=== PATIENT | female | born 1995 | race American Indian/Alaskan Native ===

== ENCOUNTER 2017-11-08 12:46 | Inpatient (IN) | payer MEDICAID ==
[2017-11-08 19:21] LABS: Basophils # (Auto) 0.1 K/mm3 (0.0-0.1); Basophils % (Auto) 0.6 % (0.0-1.8); Eosinophils % (Auto) 0.3 % (0.0-4.3); Hematocrit 34.8 % (30.3-42.9); Hemoglobin 11.4 gm/dl (10.1-14.3); Lymphocytes # (Auto) 2.3 K/mm3 (1.2-5.4); Lymphocytes % (Auto) 22.4 % (13.4-35.0); Mean Corpuscular HGB Conc 33 % (30-34); Mean Corpuscular Hemoglobin 27 pg (28-32); Mean Corpuscular Volume 82 fl (79-97); Monocytes # (Auto) 1.1 K/mm3 (0.0-0.8); Monocytes % (Auto) 11.2 % (0.0-7.3); Platelet Count 278 K/mm3 (140-440); Red Blood Count 4.24 M/mm3 (3.65-5.03)
[2017-11-08 19:22] LABS: Red Cell Distribution Width 21.4 % (13.2-15.2)
[2017-11-08] MEDS ORDERED: ZOFRAN IV PRN (22:55)
[2017-11-08] MEDS ORDERED: ePHEDrine SULFATE IV PRN (22:55)
[2017-11-08] MEDS ORDERED: BRETHINE IVP PRN (22:55)
[2017-11-08] MEDS ORDERED: MINERAL OIL PO PRN (22:55)
[2017-11-08] MEDS ORDERED: BRETHINE SUB-Q PRN (22:55)
[2017-11-08] MEDS ORDERED: PITOCin/NS 20 UNIT/1000ML DRIP 20 UNITS/1,000 ML BAG IV SCH (23:00)
[2017-11-08] MEDS ORDERED: AMBIEN PO PRN (23:31)
[2017-11-08] MEDS: LACTATED RINGERS 1,000 ML IV SCH (23:50)
[2017-11-09] MEDS: PITOCin/NS 30 UNIT/500ML 30 UNITS/500 ML BAG IV SCH ×6 (00:30→16:23)
[2017-11-09] MEDS: STADOL IV PRN ×2 (01:32→10:59)
[2017-11-09] MEDS ORDERED: POLYCILLIN/NS 2 GM/100 ML 2 GM/100 ML BAG IV ONE (04:22)
[2017-11-09] MEDS: LACTATED RINGERS 1,000 ML IV SCH ×2 (05:30→22:20)
--- NOTE | 2017-11-09 09:56 | History and Physical Report ---
History of Present Illness Date of examination: 11/09/17 Date of admission: 11/08/17 21:56 Chief complaint: Induction History of present illness: Pt is a 22yo BF EDC 10/31/17; EGA 41 2/7 weeks presents for induction of labor. She received care at [facility] since 15 weeks and course has been unremarkable and records are available. GBS is Positive. Past History Past Medical History: no pertinent history Past Surgical History: no surgical history [employer]MENT [employer]CH[employer]IC History: herpes Social history: no significant social history, single - Obstetrical History Expected Date of Delivery: 10/31/17 Actual Gestation: 41 Week(s) 2 Day(s) : 1 Medications and Allergies Allergies Allergy/AdvReac Type Severity Reaction Status Date / Time No Known Allergies Allergy Verified 11/08/17 23:03 Home Medications Medication Instructions Recorded Confirmed Last Taken Type valACYclovir [Valtrex] 500 mg PO DAILY 11/08/17 11/08/17 Unknown History Active Meds: Active Medications Butorphanol Tartrate (Stadol) 2 mg IV Q2H PRN PRN Reason: Pain , Severe (7-10) Last Admin: 11/09/17 01:32 Dose: 2 mg Ephedrine Sulfate (Ephedrine Sulfate) 10 mg IV Q2M PRN PRN Reason: Hypotension Ampicillin Sodium (Ampicillin/Ns 1 Gm/50 Ml) 1 gm in 50 mls @ 100 mls/hr IV Q6H ISSA; Protocol Lactated Ringer's (Lactated Ringers) 1,000 mls @ 125 mls/hr IV DIRECT ISSA Last Admin: 11/09/17 05:30 Dose: 125 mls/hr Oxytocin/Sodium Chloride (Pitocin/Ns 20 Unit/1000ml Drip) 20 units in 1,000 mls @ 125 mls/hr IV DIRECT ISSA Oxytocin/Sodium Chloride (Pitocin/Ns 30 Unit/500ml) 30 units in 500 mls @ 1 mls /hr IV TITR ISSA; Protocol Last Titration: 11/09/17 01:32 Dose: 4 milliunits/min, 4 mls/hr Mineral Oil (Mineral Oil) 30 ml PO QHS PRN PRN Reason: Constipation Ondansetron HCl (Zofran) 4 mg IV Q8H PRN PRN Reason: Nausea And Vomiting Terbutaline Sulfate (Brethine) 0.25 mg SUB-Q ONCE PRN PRN Reason: Hyperstimulation/Hypertonicity Terbutaline Sulfate (Brethine) 0.25 mg IVP ONCE PRN PRN Reason: Hyperstimulation/Hypertonicity Zolpidem Tartrate (Ambien) 10 mg PO QHS PRN PRN Reason: Insomnia Last Admin: 11/08/17 23:48 Dose: 10 mg Review of Systems All systems: negative - Vital Signs Vital signs: Vital Signs Pulse BP 111 H 119/72 11/08/17 13:18 11/08/17 13:18 Temp Pulse Resp BP Pulse Ox 98.3 F 95 H 16 123/75 98 11/09/17 08:10 11/09/17 09:57 11/09/17 08:10 11/09/17 09:37 11/09/17 09:57 - Physical Exam Breasts: Positive: deferred Cardiovascular: Regular rate Lungs: Positive: Clear to auscultation Abdomen: Positive: normal appearance Genitourinary (Female): Positive: normal external genitalia Vagina: Positive: normal moisture Uterus: Positive: enlarged Extremities: Positive: normal - Obstetrical FHR: category 1 Uterine Contraction Monitor Mode: External Cervical Dilatation: 1 (per nurse) Cervical Effacement Percentage: 50 (per nurse) Uterine Contraction Pattern: Regular Uterine Tone Measurement Phase: Contraction Uterine Contraction Intensity: Mild Results Result Diagrams: 11/08/17 18:25 Abnormal lab results 11/08/17 Range/Units 18:25 MCH 27 L (28-32) pg RDW 21.4 H (13.2-15.2) % [place] % (Auto) 11.2 H (0.0-7.3) % [place] # 1.1 H (0.0-0.8) K/mm3 All other labs normal. Assessment and Plan - Patient Problems (1) 41 weeks gestation of Onset Date: 11/09/17 Current Visit: Yes Status: Acute Plan to address problem: A: IUP @ 41 2/7 weeks +GBS P: Admit to L&D for cervidil/pitocin induction of labor IV Ampicillin
[2017-11-09] MEDS: AMPICILLIN/NS 1 GM/50 ML 1 GM/50 ML BAG IV SCH (10:30)
[2017-11-09] MEDS ORDERED: AMBIEN PO PRN (17:36)
--- NOTE | 2017-11-09 17:36 | Progress Note ---
Assessment and Plan - Patient Problems (1) 41 weeks gestation of Onset Date: 11/09/17 Current Visit: Yes Status: Acute Plan to address problem: A: IUP @ 41 2/7 weeks +GBS P: Will continue with cervidil/pitocin induction of labor IV Ampicillin Subjective - Subjective Date of service: 11/09/17 Principal diagnosis: IUP @ 41 2/7 weeks Interval history: Pt is a 22yo BF EDC 10/31/17; EGA 41 2/7 weeks presents for induction of labor. She received pitocin without any cervical change. GBS is Positive. Will stop pitocin and place cervidil over night. Patient reports: movement normal, contractions, no new complaints, no loss of fluid, no vaginal bleeding Objective - Vital Signs Vital Signs: Vital Signs - 12hr 11/09/17 11/09/17 11/09/17 06:36 07:36 08:10 Temperature 98.3 F Pulse Rate 93 H 101 H 104 H Respiratory 16 Rate Blood Pressure 119/74 124/79 Blood Pressure 109/62 [Right] O2 Sat by Pulse 98 Oximetry 11/09/17 11/09/17 11/09/17 08:17 08:22 08:27 Temperature Pulse Rate 99 H 100 H 102 H Respiratory Rate Blood Pressure 109/62 Blood Pressure [Right] O2 Sat by Pulse 99 99 99 Oximetry 11/09/17 11/09/17 11/09/17 08:32 08:37 08:42 Temperature Pulse Rate 105 H 95 H 103 H Respiratory Rate Blood Pressure Blood Pressure [Right] O2 Sat by Pulse 99 100 100 Oximetry 11/09/17 11/09/17 11/09/17 08:47 08:52 08:57 Temperature Pulse Rate 92 H 99 H 95 H Respiratory Rate Blood Pressure Blood Pressure [Right] O2 Sat by Pulse 100 100 100 Oximetry 11/09/17 11/09/17 11/09/17 09:02 09:07 09:12 Temperature Pulse Rate 96 H 101 H 91 H Respiratory Rate Blood Pressure Blood Pressure [Right] O2 Sat by Pulse 100 99 99 Oximetry 11/09/17 11/09/17 11/09/17 09:14 09:17 09:22 Temperature Pulse Rate 97 H 98 H 102 H Respiratory Rate Blood Pressure 124/78 Blood Pressure [Right] O2 Sat by Pulse 98 99 Oximetry 08/07/2411/09/17 11/09/17 09:27 09:32 09:37 Temperature Pulse Rate 92 H 99 H 95 H Respiratory Rate Blood Pressure 123/75 Blood Pressure [Right] O2 Sat by Pulse 98 98 98 Oximetry 11/09/17 11/09/17 11/09/17 09:42 09:47 09:52 Temperature Pulse Rate 98 H 98 H 97 H Respiratory Rate Blood Pressure Blood Pressure [Right] O2 Sat by Pulse 97 98 98 Oximetry 11/09/17 11/09/17 11/09/17 09:57 10:02 10:07 Temperature Pulse Rate 95 H 98 H 103 H Respiratory Rate Blood Pressure Blood Pressure [Right] O2 Sat by Pulse 98 98 99 Oximetry 11/09/17 11/09/17 11/09/17 10:12 10:17 10:22 Temperature Pulse Rate 92 H 96 H 94 H Respiratory Rate Blood Pressure Blood Pressure [Right] O2 Sat by Pulse 99 99 98 Oximetry 11/09/17 11/09/17 11/09/17 10:27 10:35 10:38 Temperature Pulse Rate 95 H 94 H 92 H Respiratory Rate Blood Pressure 129/81 Blood Pressure [Right] O2 Sat by Pulse 98 99 Oximetry 11/09/17 11/09/17 11/09/17 10:40 10:43 10:45 Temperature Pulse Rate 98 H 96 H 104 H Respiratory Rate Blood Pressure 126/79 Blood Pressure [Right] O2 Sat by Pulse 98 99 Oximetry 11/09/17 11/09/17 11/09/17 10:50 10:55 10:59 Temperature Pulse Rate 106 H 99 H Respiratory 16 Rate Blood Pressure Blood Pressure [Right] O2 Sat by Pulse 99 99 Oximetry 11/09/17 11/09/17 11/09/17 11:00 11:05 11:10 Temperature Pulse Rate 104 H 95 H 99 H Respiratory Rate Blood Pressure Blood Pressure [Right] O2 Sat by Pulse 98 99 96 Oximetry 11/09/17 11/09/17 11/09/17 11:13 11:14 11:15 Temperature Pulse Rate 95 H 90 95 H Respiratory Rate Blood Pressure 127/74 Blood Pressure [Right] O2 Sat by Pulse 94 97 Oximetry 11/09/17 11/09/17 11/09/17 11:20 11:25 11:29 Temperature Pulse Rate 98 H 99 H Respiratory 14 Rate Blood Pressure Blood Pressure [Right] O2 Sat by Pulse 95 96 Oximetry 11/09/17 11/09/17 11/09/17 11:30 11:35 11:40 Temperature Pulse Rate 99 H 100 H 94 H Respiratory Rate Blood Pressure Blood Pressure [Right] O2 Sat by Pulse 96 97 96 Oximetry 11/09/17 11/09/17 11/09/17 11:45 11:47 11:50 Temperature Pulse Rate 89 90 98 H Respiratory Rate Blood Pressure 125/66 Blood Pressure [Right] O2 Sat by Pulse 96 94 96 Oximetry 11/09/17 11/09/17 11/09/17 11:55 12:00 12:05 Temperature Pulse Rate 97 H 97 H 93 H Respiratory Rate Blood Pressure Blood Pressure [Right] O2 Sat by Pulse 96 96 96 Oximetry 11/09/17 11/09/17 11/09/17 12:10 12:14 12:15 Temperature Pulse Rate 94 H 90 90 Respiratory Rate Blood Pressure 112/60 Blood Pressure [Right] O2 Sat by Pulse 96 97 Oximetry 11/09/17 11/09/17 11/09/17 12:20 12:25 12:30 Temperature Pulse Rate 93 H 87 89 Respiratory Rate Blood Pressure Blood Pressure [Right] O2 Sat by Pulse 96 98 96 Oximetry 11/09/17 11/09/17 11/09/17 12:35 12:40 12:43 Temperature Pulse Rate 95 H 94 H 90 Respiratory Rate Blood Pressure 122/61 Blood Pressure [Right] O2 Sat by Pulse 97 98 Oximetry 11/09/17 11/09/17 11/09/17 12:45 12:50 12:55 Temperature Pulse Rate 92 H 95 H 96 H Respiratory Rate Blood Pressure Blood Pressure [Right] O2 Sat by Pulse 96 97 97 Oximetry 11/09/17 11/09/17 11/09/17 13:00 13:05 13:10 Temperature Pulse Rate 89 98 H 97 H Respiratory Rate Blood Pressure Blood Pressure [Right] O2 Sat by Pulse 96 96 97 Oximetry 11/09/17 11/09/17 11/09/17 13:13 13:15 13:20 Temperature Pulse Rate 92 H 96 H 95 H Respiratory Rate Blood Pressure 120/68 Blood Pressure [Right] O2 Sat by Pulse 96 96 Oximetry 11/09/17 11/09/17 11/09/17 13:25 13:30 13:35 Temperature Pulse Rate 98 H 95 H 97 H Respiratory Rate Blood Pressure Blood Pressure [Right] O2 Sat by Pulse 97 97 97 Oximetry 11/09/17 11/09/17 11/09/17 13:40 13:45 13:50 Temperature Pulse Rate 97 H 98 H 99 H Respiratory Rate Blood Pressure 121/70 Blood Pressure [Right] O2 Sat by Pulse 96 96 97 Oximetry 11/09/17 11/09/17 11/09/17 13:55 14:00 14:05 Temperature Pulse Rate 104 H 112 H 94 H Respiratory Rate Blood Pressure Blood Pressure [Right] O2 Sat by Pulse 98 96 97 Oximetry 11/09/17 11/09/17 11/09/17 14:10 14:13 14:15 Temperature Pulse Rate 113 H 96 H 107 H Respiratory Rate Blood Pressure 122/66 Blood Pressure [Right] O2 Sat by Pulse 97 97 Oximetry 11/09/17 11/09/17 11/09/17 14:20 14:25 14:30 Temperature Pulse Rate 97 H 97 H 99 H Respiratory Rate Blood Pressure Blood Pressure [Right] O2 Sat by Pulse 97 97 97 Oximetry 11/09/17 11/09/17 11/09/17 14:35 14:40 14:44 Temperature Pulse Rate 104 H 107 H 104 H Respiratory Rate Blood Pressure 118/67 Blood Pressure [Right] O2 Sat by Pulse 98 98 Oximetry 11/09/17 11/09/17 11/09/17 14:45 14:50 14:55 Temperature Pulse Rate 112 H 106 H 105 H Respiratory Rate Blood Pressure Blood Pressure [Right] O2 Sat by Pulse 98 98 98 Oximetry 11/09/17 11/09/17 11/09/17 15:00 15:05 15:10 Temperature Pulse Rate 91 H 93 H 103 H Respiratory Rate Blood Pressure Blood Pressure [Right] O2 Sat by Pulse 97 97 98 Oximetry 11/09/17 11/09/17 11/09/17 15:13 15:15 15:32 Temperature Pulse Rate 90 112 H 98 H Respiratory Rate Blood Pressure 111/63 Blood Pressure [Right] O2 Sat by Pulse 98 99 Oximetry 11/09/17 11/09/17 11/09/17 15:37 15:42 15:44 Temperature Pulse Rate 94 H 91 H 92 H Respiratory Rate Blood Pressure 112/74 Blood Pressure [Right] O2 Sat by Pulse 97 98 Oximetry 11/09/17 11/09/17 11/09/17 15:47 15:52 15:57 Temperature Pulse Rate 94 H 91 H 92 H Respiratory Rate Blood Pressure Blood Pressure [Right] O2 Sat by Pulse 97 99 97 Oximetry 11/09/17 11/09/17 11/09/17 16:02 16:07 16:12 Temperature Pulse Rate 94 H 90 91 H Respiratory Rate Blood Pressure Blood Pressure [Right] O2 Sat by Pulse 97 97 98 Oximetry 11/09/17 11/09/17 11/09/17 16:13 16:17 16:22 Temperature Pulse Rate 85 90 96 H Respiratory Rate Blood Pressure 111/72 Blood Pressure [Right] O2 Sat by Pulse 97 97 Oximetry 11/09/17 11/09/17 11/09/17 16:27 16:32 16:37 Temperature Pulse Rate 94 H 91 H 99 H Respiratory Rate Blood Pressure Blood Pressure [Right] O2 Sat by Pulse 99 98 98 Oximetry 11/09/17 11/09/17 11/09/17 16:42 16:44 16:47 Temperature Pulse Rate 100 H 96 H 99 H Respiratory Rate Blood Pressure 116/71 Blood Pressure [Right] O2 Sat by Pulse 98 98 Oximetry 11/09/17 11/09/17 11/09/17 16:52 16:57 17:02 Temperature Pulse Rate 99 H 98 H 97 H Respiratory Rate Blood Pressure Blood Pressure [Right] O2 Sat by Pulse 97 97 96 Oximetry 11/09/17 11/09/17 11/09/17 17:07 17:12 17:13 Temperature Pulse Rate 95 H 94 H 96 H Respiratory Rate Blood Pressure 112/78 Blood Pressure [Right] O2 Sat by Pulse 98 97 Oximetry 11/09/17 17:17 Temperature Pulse Rate 102 H Respiratory Rate Blood Pressure Blood Pressure [Right] O2 Sat by Pulse 97 Oximetry - Exam FHR: category 1 Uterine Contraction Monitor Mode: External Cervical Dilatation: 1 (per nurse) Cervical Effacement Percentage: 50 (per nurse) Uterine Contraction Pattern: Regular Uterine Contraction Intensity: Mild - Labs Labs: Abnormal Labs 11/08/17 18:25 MCH 27 L RDW 21.4 H [place] % (Auto) 11.2 H [place] # 1.1 H Laboratory Results - last 24 hr 11/08/17 11/08/17 11/08/17 18:25 18:25 18:25 WBC 10.2 RBC 4.24 Hgb 11.4 Hct 34.8 MCV 82 MCH 27 L MCHC 33 RDW 21.4 H Plt Count 278 Lymph % (Auto) 22.4 [place] % (Auto) 11.2 H Eos % (Auto) 0.3 Baso % (Auto) 0.6 Lymph # 2.3 [place] # 1.1 H Eos # 0.0 Baso # 0.1 Seg Neutrophils % 65.5 Seg Neutrophils # 6.7 RPR Hep Bs Antigen Non-reactive HIV 1&2 Antibody Rapid Non react HIV P24 Antigen Non react Rubella IgG Antibody Immune Blood Type Antibody Screen 11/08/17 11/08/17 18:25 18:43 WBC RBC Hgb Hct MCV MCH MCHC RDW Plt Count Lymph % (Auto) [place] % (Auto) Eos % (Auto) Baso % (Auto) Lymph # [place] # Eos # Baso # Seg Neutrophils % Seg Neutrophils # RPR Nonreactive Hep Bs Antigen HIV 1&2 Antibody Rapid HIV P24 Antigen Rubella IgG Antibody Blood Type O POSITIVE Antibody Screen Negative
[2017-11-09] MEDS ORDERED: CERVIDIL VG ONE (20:00)
[2017-11-10] MEDS: SUBLIMAZE IV PRN ×2 (00:07→02:53)
[2017-11-10] MEDS: LACTATED RINGERS 1,000 ML IV SCH ×4 (02:02→20:27)
[2017-11-10] MEDS ORDERED: CERVIDIL VG ONE (03:49)
[2017-11-10] MEDS: AMPICILLIN/NS 1 GM/50 ML 1 GM/50 ML BAG IV SCH ×4 (04:55→15:40)
[2017-11-10] MEDS: STADOL IV PRN ×2 (04:59→07:42)
[2017-11-10] MEDS ORDERED: NARCAN 2 MG/2 ML IV PRN (08:54)
[2017-11-10] MEDS ORDERED: ePHEDrine SULFATE IV PRN (08:54)
--- NOTE | 2017-11-10 08:54 | Anesthesia Consultation ---
Anesthesia Consult and Med Hx Date of service: 11/10/17 - Airway Anesthetic Teeth Evaluation: Good ROM Head & Neck: Adequate Mental/Hyoid Distance: Adequate Mallampati Class: Class II Intubation Access Assessment: Probably Good - Pulmonary Exam CTA: Yes - Cardiac Exam Cardiac Exam: RRR - Pre-Operative Health Status ASA Pre-Surgery Classification: ASA2 Proposed Anesthetic Plan: Epidural - Pulmonary Hx Asthma: No COPD: No Hx Pneumonia: No - Cardiovascular System Hx Hypertension: No - Central Nervous System Hx Seizures: No Hx Psychiatric Problems: No - Endocrine Hx Renal Disease: No Hx End Stage Renal Disease: No Hx Hypothyroidism: No Hx Hyperthyroidism: No - Hematic Hx Anemia: No Hx Sickle Cell Disease: No
[2017-11-10] MEDS ORDERED: fentaNYL-BUPIV 2 MCG/ML-0.125% 200 MCG/100 ML BAG EPIDURAL SCH ×2 (09:00→22:00)
[2017-11-10] MEDS: PITOCin/NS 30 UNIT/500ML 30 UNITS/500 ML BAG IV SCH (09:47)
--- NOTE | 2017-11-10 09:50 | Progress Note ---
Assessment and Plan - Patient Problems (1) 41 weeks gestation of Onset Date: 11/09/17 Current Visit: Yes Status: Acute Plan to address problem: A: IUP @ 41 3/7 weeks +GBS P: Will continue with pitocin induction of labor IV Ampicillin Expectant vaginal delivery Subjective - Subjective Date of service: 11/10/17 Principal diagnosis: IUP @ 41 3/7 weeks Interval history: Pt is a 22yo BF EDC 10/31/17; EGA 41 3/7 weeks presented for induction of labor. She received pitocin without any cervical change, followed by cervidil overnight. She reported SROM @ 0400, and is currently ankita q 4-5 mins with epidural in place. GBS is Positive. Patient reports: loss of fluid (SROM), movement normal, contractions, no new complaints, no vaginal bleeding Objective - Vital Signs Vital Signs: Vital Signs - 12hr 11/09/17 11/10/17 11/10/17 23:00 07:10 08:46 Temperature 98.4 F 98.3 F Pulse Rate 115 H Blood Pressure O2 Sat by Pulse 99 Oximetry 11/10/17 11/10/17 11/10/17 08:47 08:49 08:51 Temperature Pulse Rate 108 H 102 H 102 H Blood Pressure 128/79 130/82 132/80 O2 Sat by Pulse Oximetry 11/10/17 11/10/17 11/10/17 08:52 08:54 08:57 Temperature Pulse Rate 102 H 100 H 107 H Blood Pressure 115/65 104/58 O2 Sat by Pulse 98 94 98 Oximetry 11/10/17 11/10/17 11/10/17 08:59 09:01 09:02 Temperature Pulse Rate 93 H 106 H 109 H Blood Pressure 111/60 102/58 O2 Sat by Pulse 97 Oximetry 11/10/17 11/10/17 11/10/17 09:03 09:07 09:12 Temperature Pulse Rate 104 H 98 H 98 H Blood Pressure 102/58 O2 Sat by Pulse 97 96 Oximetry 11/10/17 11/10/17 11/10/17 09:15 09:17 09:22 Temperature Pulse Rate 101 H 98 H 103 H Blood Pressure O2 Sat by Pulse 91 95 97 Oximetry 11/10/17 11/10/17 11/10/17 09:27 09:28 09:32 Temperature Pulse Rate 105 H 96 H 88 Blood Pressure 102/68 O2 Sat by Pulse 97 98 Oximetry 11/10/17 11/10/17 11/10/17 09:37 09:42 09:43 Temperature Pulse Rate 92 H 86 90 Blood Pressure 107/70 O2 Sat by Pulse 97 95 Oximetry 11/10/17 09:47 Temperature Pulse Rate 89 Blood Pressure O2 Sat by Pulse 97 Oximetry - Exam Abdomen: Present: normal appearance, soft FHR: category 1 Uterine Contraction Monitor Mode: External Cervical Dilatation: 4 Cervical Effacement Percentage: 100 station: -2 Uterine Contraction Pattern: Irregular Uterine Tone Measurement Phase: Contraction Uterine Contraction Intensity: Moderate - Labs Labs: Abnormal Labs 11/08/17 18:25 MCH 27 L RDW 21.4 H [place] % (Auto) 11.2 H [place] # 1.1 H Laboratory Results - last 24 hr 11/08/17 18:25 RPR Nonreactive
[2017-11-10] MEDS ORDERED: METHERGINE IM ONE ×3 (17:01→23:33)
[2017-11-10] MEDS ORDERED: CYTOTEC ONE ×2 (17:02)
[2017-11-10] MEDS ORDERED: XYLOCAINE MPF 2% ONE (19:58)
[2017-11-10] MEDS ORDERED: BICITRA PO ONE (21:02)
[2017-11-10] MEDS ORDERED: REGLAN IV ONE (21:02)
[2017-11-10] MEDS ORDERED: PEPCID IV ONE (21:02)
--- NOTE | 2017-11-10 21:10 | Progress Note ---
Assessment and Plan - Patient Problems (1) 41 weeks gestation of Onset Date: 11/09/17 Current Visit: Yes Status: Acute Plan to address problem: A: IUP @ 41 3/7 weeks +GBS P: Will proceed with a C Section due to Failure to Progress. Subjective - Subjective Date of service: 11/10/17 Principal diagnosis: IUP @ 41 3/7 weeks Interval history: Pt is a 22yo BF EDC 10/31/17; EGA 41 3/7 weeks presented for induction of labor. She received pitocin without any cervical change, followed by cervidil overnight. She reported SROM @ 0400, and is currently ankita q 4-5 mins with epid[address] in place. GBS is Positive. She received pitocin all day and still no significant cervical change - Discussed with pt and family members that we will proceed with a C Section for delivery. Patient reports: loss of fluid (SROM), movement normal, contractions, no new complaints, no vaginal bleeding Objective - Vital Signs Vital Signs: Vital Signs - 12hr 11/10/17 11/10/17 11/10/17 09:12 09:15 09:17 Temperature Pulse Rate 98 H 101 H 98 H Respiratory Rate Blood Pressure Blood Pressure [Right] O2 Sat by Pulse 96 91 95 Oximetry 11/10/17 11/10/17 11/10/17 09:22 09:27 09:28 Temperature Pulse Rate 103 H 105 H 96 H Respiratory Rate Blood Pressure 102/68 Blood Pressure [Right] O2 Sat by Pulse 97 97 Oximetry 11/10/17 11/10/17 11/10/17 09:32 09:37 09:42 Temperature Pulse Rate 88 92 H 86 Respiratory Rate Blood Pressure Blood Pressure [Right] O2 Sat by Pulse 98 97 95 Oximetry 11/10/17 11/10/17 11/10/17 09:43 09:47 09:51 Temperature 98.1 F Pulse Rate 90 89 Respiratory 18 Rate Blood Pressure 107/70 Blood Pressure [Right] O2 Sat by Pulse 97 Oximetry 11/10/17 11/10/17 11/10/17 09:52 09:57 09:58 Temperature Pulse Rate 97 H 91 H 90 Respiratory Rate Blood Pressure 111/67 Blood Pressure [Right] O2 Sat by Pulse 98 95 Oximetry 11/10/17 11/10/17 11/10/17 10:02 10:07 10:12 Temperature Pulse Rate 90 90 95 H Respiratory Rate Blood Pressure Blood Pressure [Right] O2 Sat by Pulse 97 96 95 Oximetry 11/10/17 11/10/17 11/10/17 10:13 10:17 10:22 Temperature Pulse Rate 84 84 89 Respiratory Rate Blood Pressure 104/56 Blood Pressure [Right] O2 Sat by Pulse 96 96 Oximetry 11/10/17 11/10/17 11/10/17 10:27 10:30 10:32 Temperature Pulse Rate 90 88 88 Respiratory Rate Blood Pressure 103/62 Blood Pressure [Right] O2 Sat by Pulse 97 96 Oximetry 11/10/17 11/10/17 11/10/17 10:37 10:42 10:44 Temperature Pulse Rate 84 88 90 Respiratory Rate Blood Pressure 108/61 Blood Pressure [Right] O2 Sat by Pulse 97 95 Oximetry 11/10/17 11/10/17 11/10/17 10:47 10:52 10:57 Temperature Pulse Rate 90 93 H 97 H Respiratory Rate Blood Pressure Blood Pressure [Right] O2 Sat by Pulse 96 95 98 Oximetry 11/10/17 11/10/17 11/10/17 10:59 11:02 11:04 Temperature 98.4 F Pulse Rate 93 H 89 Respiratory 18 Rate Blood Pressure 132/80 Blood Pressure [Right] O2 Sat by Pulse 96 Oximetry 11/10/17 11/10/17 11/10/17 11:07 11:12 11:15 Temperature Pulse Rate 94 H 90 88 Respiratory Rate Blood Pressure 124/82 Blood Pressure [Right] O2 Sat by Pulse 97 100 Oximetry 11/10/17 11/10/17 11/10/17 11:17 11:22 11:27 Temperature Pulse Rate 87 91 H 88 Respiratory Rate Blood Pressure Blood Pressure [Right] O2 Sat by Pulse 100 100 100 Oximetry 11/10/17 11/10/17 11/10/17 11:30 11:32 11:37 Temperature Pulse Rate 90 94 H 91 H Respiratory Rate Blood Pressure 128/86 Blood Pressure [Right] O2 Sat by Pulse 100 100 Oximetry 11/10/17 11/10/17 11/10/17 11:42 11:44 11:47 Temperature Pulse Rate 92 H 86 90 Respiratory Rate Blood Pressure 125/85 Blood Pressure [Right] O2 Sat by Pulse 100 100 Oximetry 11/10/17 11/10/17 11/10/17 11:52 11:57 11:59 Temperature Pulse Rate 88 97 H 93 H Respiratory Rate Blood Pressure 132/77 Blood Pressure [Right] O2 Sat by Pulse 99 100 Oximetry 11/10/17 11/10/17 11/10/17 12:02 12:11 12:14 Temperature Pulse Rate 94 H 97 H 92 H Respiratory Rate Blood Pressure 127/72 Blood Pressure [Right] O2 Sat by Pulse 99 99 Oximetry 11/10/17 11/10/17 11/10/17 12:16 12:21 12:26 Temperature Pulse Rate 88 96 H 95 H Respiratory Rate Blood Pressure Blood Pressure [Right] O2 Sat by Pulse 99 99 98 Oximetry 11/10/17 11/10/17 11/10/17 12:28 12:31 12:36 Temperature Pulse Rate 97 H 103 H 105 H Respiratory Rate Blood Pressure 112/62 Blood Pressure [Right] O2 Sat by Pulse 99 97 Oximetry 11/10/17 11/10/17 11/10/17 12:41 12:43 12:46 Temperature Pulse Rate 98 H 98 H 97 H Respiratory Rate Blood Pressure 119/72 Blood Pressure [Right] O2 Sat by Pulse 97 96 Oximetry 11/10/17 11/10/17 11/10/17 12:51 12:56 12:58 Temperature Pulse Rate 98 H 96 H 95 H Respiratory Rate Blood Pressure 117/75 Blood Pressure [Right] O2 Sat by Pulse 96 98 Oximetry 11/10/17 11/10/17 11/10/17 13:01 13:06 13:11 Temperature Pulse Rate 96 H 101 H 105 H Respiratory Rate Blood Pressure Blood Pressure [Right] O2 Sat by Pulse 97 97 97 Oximetry 11/10/17 11/10/17 11/10/17 13:14 13:16 13:21 Temperature Pulse Rate 94 H 99 H 100 H Respiratory Rate Blood Pressure 120/71 Blood Pressure [Right] O2 Sat by Pulse 97 96 Oximetry 11/10/17 11/10/17 11/10/17 13:26 13:29 13:31 Temperature Pulse Rate 94 H 96 H 97 H Respiratory Rate Blood Pressure 112/71 Blood Pressure [Right] O2 Sat by Pulse 99 99 Oximetry 11/10/17 11/10/17 11/10/17 13:36 13:41 13:43 Temperature Pulse Rate 94 H 94 H 96 H Respiratory Rate Blood Pressure 110/70 Blood Pressure [Right] O2 Sat by Pulse 99 100 Oximetry 11/10/17 11/10/17 11/10/17 13:47 13:52 13:55 Temperature 99.0 F Pulse Rate 94 H 90 Respiratory 20 Rate Blood Pressure Blood Pressure [Right] O2 Sat by Pulse 100 100 Oximetry 11/10/17 11/10/17 11/10/17 13:57 14:00 14:02 Temperature Pulse Rate 102 H 97 H 98 H Respiratory Rate Blood Pressure 114/78 Blood Pressure [Right] O2 Sat by Pulse 100 100 Oximetry 11/10/17 11/10/17 11/10/17 14:07 14:12 14:13 Temperature Pulse Rate 98 H 94 H 93 H Respiratory Rate Blood Pressure 124/78 Blood Pressure [Right] O2 Sat by Pulse 99 99 Oximetry 11/10/17 11/10/17 11/10/17 14:17 14:22 14:27 Temperature Pulse Rate 88 101 H 92 H Respiratory Rate Blood Pressure Blood Pressure [Right] O2 Sat by Pulse 100 98 99 Oximetry 11/10/17 11/10/17 11/10/17 14:29 14:32 14:37 Temperature Pulse Rate 89 95 H 95 H Respiratory Rate Blood Pressure 123/80 Blood Pressure [Right] O2 Sat by Pulse 99 100 Oximetry 11/10/17 11/10/17 11/10/17 14:42 14:43 14:47 Temperature Pulse Rate 89 85 99 H Respiratory Rate Blood Pressure 125/82 Blood Pressure [Right] O2 Sat by Pulse 100 100 Oximetry 11/10/17 11/10/17 11/10/17 14:52 14:57 14:59 Temperature Pulse Rate 110 H 89 92 H Respiratory Rate Blood Pressure 121/73 Blood Pressure [Right] O2 Sat by Pulse 97 100 Oximetry 11/10/17 11/10/17 11/10/17 15:02 15:07 15:12 Temperature Pulse Rate 91 H 95 H 97 H Respiratory Rate Blood Pressure Blood Pressure [Right] O2 Sat by Pulse 100 100 99 Oximetry 11/10/17 11/10/17 11/10/17 15:15 15:17 15:22 Temperature Pulse Rate 92 H 96 H 95 H Respiratory Rate Blood Pressure 123/86 Blood Pressure [Right] O2 Sat by Pulse 99 100 Oximetry 11/10/17 11/10/17 11/10/17 15:27 15:28 15:32 Temperature Pulse Rate 94 H 101 H 95 H Respiratory Rate Blood Pressure 137/88 Blood Pressure [Right] O2 Sat by Pulse 98 98 Oximetry 11/10/17 11/10/17 11/10/17 15:37 15:42 15:44 Temperature Pulse Rate 97 H 94 H 90 Respiratory Rate Blood Pressure 119/63 Blood Pressure [Right] O2 Sat by Pulse 99 98 Oximetry 11/10/17 11/10/17 11/10/17 15:47 15:52 15:57 Temperature Pulse Rate 96 H 104 H 93 H Respiratory Rate Blood Pressure Blood Pressure [Right] O2 Sat by Pulse 98 99 99 Oximetry 11/10/17 11/10/17 11/10/17 15:58 16:02 16:07 Temperature Pulse Rate 95 H 93 H 95 H Respiratory Rate Blood Pressure 120/81 Blood Pressure [Right] O2 Sat by Pulse 99 99 Oximetry 11/10/17 11/10/17 11/10/17 16:12 16:13 16:17 Temperature Pulse Rate 98 H 96 H 99 H Respiratory Rate Blood Pressure 119/76 Blood Pressure [Right] O2 Sat by Pulse 97 97 Oximetry 11/10/17 11/10/17 11/10/17 16:22 16:27 16:29 Temperature Pulse Rate 97 H 96 H 96 H Respiratory Rate Blood Pressure 123/79 Blood Pressure [Right] O2 Sat by Pulse 98 96 Oximetry 11/10/17 11/10/17 11/10/17 16:32 16:37 16:42 Temperature Pulse Rate 103 H 107 H 103 H Respiratory Rate Blood Pressure Blood Pressure [Right] O2 Sat by Pulse 97 97 99 Oximetry 11/10/17 11/10/17 11/10/17 16:44 16:47 16:52 Temperature Pulse Rate 122 H 116 H 103 H Respiratory Rate Blood Pressure 140/65 Blood Pressure [Right] O2 Sat by Pulse 97 95 Oximetry 11/10/17 11/10/17 11/10/17 16:57 16:58 17:02 Temperature Pulse Rate 106 H 107 H 110 H Respiratory Rate Blood Pressure 135/88 Blood Pressure [Right] O2 Sat by Pulse 97 97 Oximetry 11/10/17 11/10/17 11/10/17 17:07 17:12 17:15 Temperature Pulse Rate 102 H 99 H 107 H Respiratory Rate Blood Pressure 131/79 Blood Pressure [Right] O2 Sat by Pulse 96 99 Oximetry 11/10/17 11/10/17 11/10/17 17:28 17:37 17:39 Temperature Pulse Rate 101 H 92 H 93 H Respiratory Rate Blood Pressure 125/69 133/82 126/77 Blood Pressure [Right] O2 Sat by Pulse 96 98 Oximetry 11/10/17 11/10/17 11/10/17 17:41 17:42 17:43 Temperature Pulse Rate 102 H 96 H 96 H Respiratory Rate Blood Pressure 122/75 119/74 Blood Pressure [Right] O2 Sat by Pulse 97 Oximetry 11/10/17 11/10/17 11/10/17 17:45 17:47 17:49 Temperature Pulse Rate 95 H 96 H 94 H Respiratory Rate Blood Pressure 123/76 121/76 121/76 Blood Pressure [Right] O2 Sat by Pulse 97 Oximetry 11/10/17 11/10/17 11/10/17 17:51 17:52 17:53 Temperature Pulse Rate 96 H 99 H 96 H Respiratory Rate Blood Pressure 124/79 117/77 Blood Pressure [Right] O2 Sat by Pulse 96 Oximetry 11/10/17 11/10/17 11/10/17 17:55 17:57 17:59 Temperature Pulse Rate 96 H 94 H 98 H Respiratory Rate Blood Pressure 121/77 119/74 118/73 Blood Pressure [Right] O2 Sat by Pulse 97 Oximetry 11/10/17 11/10/17 11/10/17 18:01 18:02 18:03 Temperature Pulse Rate 100 H 97 H 96 H Respiratory Rate Blood Pressure 115/75 112/75 Blood Pressure [Right] O2 Sat by Pulse 96 Oximetry 11/10/17 11/10/17 11/10/17 18:05 18:07 18:09 Temperature Pulse Rate 93 H 93 H 99 H Respiratory Rate Blood Pressure 116/75 114/73 112/70 Blood Pressure [Right] O2 Sat by Pulse 97 Oximetry 11/10/17 11/10/17 11/10/17 18:11 18:12 18:13 Temperature Pulse Rate 99 H 98 H 94 H Respiratory Rate Blood Pressure 111/69 117/74 Blood Pressure [Right] O2 Sat by Pulse 97 Oximetry 11/10/17 11/10/17 11/10/17 18:15 18:17 18:19 Temperature Pulse Rate 93 H 99 H 99 H Respiratory Rate Blood Pressure 121/75 120/74 115/74 Blood Pressure [Right] O2 Sat by Pulse 96 Oximetry 11/10/17 11/10/17 11/10/17 18:21 18:22 18:23 Temperature Pulse Rate 95 H 96 H 100 H Respiratory Rate Blood Pressure 118/75 118/77 Blood Pressure [Right] O2 Sat by Pulse 97 Oximetry 11/10/17 11/10/17 11/10/17 18:25 18:27 18:29 Temperature Pulse Rate 97 H 97 H 93 H Respiratory Rate Blood Pressure 122/76 118/76 121/75 Blood Pressure [Right] O2 Sat by Pulse 97 Oximetry 11/10/17 11/10/17 11/10/17 18:31 18:32 18:33 Temperature Pulse Rate 95 H 96 H 96 H Respiratory Rate Blood Pressure 118/73 121/74 Blood Pressure [Right] O2 Sat by Pulse 96 Oximetry 11/10/17 11/10/17 11/10/17 18:35 18:37 18:39 Temperature Pulse Rate 96 H 99 H 100 H Respiratory Rate Blood Pressure 120/73 114/71 120/72 Blood Pressure [Right] O2 Sat by Pulse 97 Oximetry 11/10/17 11/10/17 11/10/17 18:41 18:42 18:43 Temperature Pulse Rate 96 H 99 H 97 H Respiratory Rate Blood Pressure 116/71 112/71 Blood Pressure [Right] O2 Sat by Pulse 97 Oximetry 11/10/17 11/10/17 11/10/17 18:45 18:47 18:49 Temperature Pulse Rate 95 H 96 H 102 H Respiratory Rate Blood Pressure 121/76 119/75 122/78 Blood Pressure [Right] O2 Sat by Pulse 97 Oximetry 11/10/17 11/10/17 11/10/17 18:52 18:53 18:55 Temperature Pulse Rate 96 H 97 H 107 H Respiratory Rate Blood Pressure 111/55 109/58 112/57 Blood Pressure [Right] O2 Sat by Pulse 98 Oximetry 11/10/17 11/10/17 11/10/17 18:57 18:59 19:01 Temperature Pulse Rate 96 H 100 H 111 H Respiratory Rate Blood Pressure 105/57 110/57 111/59 Blood Pressure [Right] O2 Sat by Pulse 99 Oximetry 11/10/17 11/10/17 11/10/17 19:02 19:03 19:05 Temperature Pulse Rate 100 H 96 H 100 H Respiratory Rate Blood Pressure 112/63 114/68 Blood Pressure [Right] O2 Sat by Pulse 99 Oximetry 11/10/17 11/10/17 11/10/17 19:07 19:09 19:11 Temperature Pulse Rate 97 H 102 H 99 H Respiratory Rate Blood Pressure 110/66 107/65 108/68 Blood Pressure [Right] O2 Sat by Pulse 99 Oximetry 11/10/17 11/10/17 11/10/17 19:12 19:13 19:15 Temperature Pulse Rate 99 H 103 H 109 H Respiratory Rate Blood Pressure 105/68 113/69 Blood Pressure [Right] O2 Sat by Pulse 96 Oximetry 11/10/17 11/10/17 11/10/17 19:17 19:19 19:21 Temperature Pulse Rate 104 H 100 H 100 H Respiratory Rate Blood Pressure 117/69 111/67 104/65 Blood Pressure [Right] O2 Sat by Pulse 98 Oximetry 11/10/17 11/10/17 11/10/17 19:22 19:23 19:25 Temperature Pulse Rate 102 H 106 H 110 H Respiratory Rate Blood Pressure 111/65 118/65 Blood Pressure [Right] O2 Sat by Pulse 98 Oximetry 11/10/17 11/10/17 11/10/17 19:27 19:28 19:30 Temperature Pulse Rate 105 H 105 H 107 H Respiratory Rate Blood Pressure 118/61 116/60 Blood Pressure [Right] O2 Sat by Pulse 97 Oximetry 11/10/17 11/10/17 11/10/17 19:32 19:37 19:42 Temperature Pulse Rate 105 H 107 H 111 H Respiratory Rate Blood Pressure Blood Pressure [Right] O2 Sat by Pulse 98 98 99 Oximetry 11/10/17 11/10/17 11/10/17 19:47 19:59 20:01 Temperature Pulse Rate 104 H 101 H 109 H Respiratory Rate Blood Pressure 118/74 Blood Pressure [Right] O2 Sat by Pulse 98 97 Oximetry 11/10/17 11/10/17 11/10/17 20:03 20:04 20:05 Temperature Pulse Rate 104 H 98 H 96 H Respiratory Rate Blood Pressure 124/76 115/70 Blood Pressure [Right] O2 Sat by Pulse 98 Oximetry 11/10/17 11/10/17 11/10/17 20:08 20:09 20:14 Temperature Pulse Rate 98 H 101 H 100 H Respiratory Rate Blood Pressure 120/67 112/68 Blood Pressure [Right] O2 Sat by Pulse 97 97 Oximetry 11/10/17 11/10/17 11/10/17 20:19 20:20 20:24 Temperature 99.5 F Pulse Rate 105 H 103 H 104 H Respiratory 18 Rate Blood Pressure Blood Pressure 112/68 [Right] O2 Sat by Pulse 97 96 Oximetry 11/10/17 11/10/17 11/10/17 20:29 20:34 20:39 Temperature Pulse Rate 101 H 101 H 107 H Respiratory Rate Blood Pressure Blood Pressure [Right] O2 Sat by Pulse 97 98 96 Oximetry 11/10/17 11/10/17 11/10/17 20:43 20:44 20:49 Temperature Pulse Rate 80 101 H 100 H Respiratory Rate Blood Pressure Blood Pressure [Right] O2 Sat by Pulse 84 98 97 Oximetry 11/10/17 11/10/17 11/10/17 20:54 20:59 21:04 Temperature Pulse Rate 103 H 102 H 111 H Respiratory Rate Blood Pressure Blood Pressure [Right] O2 Sat by Pulse 96 97 96 Oximetry 11/10/17 21:09 Temperature Pulse Rate 107 H Respiratory Rate Blood Pressure Blood Pressure [Right] O2 Sat by Pulse 97 Oximetry - Exam FHR: category 1 Uterine Contraction Monitor Mode: External Cervical Dilatation: 4.5 Cervical Effacement Percentage: 100 station: -2 Uterine Contraction Pattern: Regular Uterine Tone Measurement Phase: Contraction Uterine Contraction Intensity: Strong/Firm - Labs Labs: Abnormal Labs 11/08/17 18:25 MCH 27 L RDW 21.4 H [place] % (Auto) 11.2 H [place] # 1.1 H
[2017-11-10] MEDS ORDERED: WATER FOR IRRIG STERILE IR ONE (21:25)
[2017-11-10] MEDS ORDERED: NACL 0.9% IR ONE (21:25)
--- NOTE | 2017-11-10 21:25 | Post Anesthesia Evaluation ---
- Post Anesthesia Evaluation Patient Participated: Yes Airway Patent: Yes Stable Respiratory Function: Yes Nausea/Vomiting: No Temp > 96.8F: Yes Pain Manageable: Yes Adequeate Hydration: Yes Anesthesia Complications: No
[2017-11-10] MEDS ORDERED: ZOFRAN IV PRN (21:26)
[2017-11-10] MEDS ORDERED: PHENERGAN PO PRN (21:26)
[2017-11-10] MEDS ORDERED: PHENERGAN PR PRN (21:26)
[2017-11-10] MEDS ORDERED: NARCAN 0.4 MG/1 ML IV PRN ×2 (21:26→22:33)
[2017-11-10] MEDS ORDERED: LACTATED RINGERS 1,000 ML IV SCH (22:00)
[2017-11-10] MEDS ORDERED: PITOCin/NS 20 UNIT/1000ML DRIP 20 UNITS/1,000 ML BAG IV SCH ×2 (22:00→23:00)
[2017-11-10] MEDS ORDERED: SODIUM CHLORIDE FLUSH SYRINGE 10 ML IV PRN ×2 (22:00→23:00)
[2017-11-10] MEDS ORDERED: ANCEF/STERILE WATER 2 GM/20 ML 2 GM/20 ML SYRINGE IV NR (22:00)
--- NOTE | 2017-11-10 22:28 | Operative Report ---
Operative Report Operative Report: Date of procedure: 11/10/2017 Pre-operative diagnosis: 1. Intrauterine at 41-3/7 weeks 2. Failed induction of labor 3. Failure to progress 4. Cephalopelvic disproportion Post-operative diagnosis: Same Procedure name(s): Primary low transverse section Surgeon: Erik Abel MD Fitness Teacher: None Anesthesia: Epidural anesthesia by Dr. Torres EBL: 800 mls Findings: A 4134 g male Apgars 7 at 1 minute 9 at 5 minutes. 1+ meconium fluid. Normal uterus. Normal tubes and ovaries bilaterally. Procedure: After the patient was prepped and draped in usual sterile fashion, and after satisfactory level of epidural anesthesia was obtained, the skin knife was used to make a transverse skin incision. The incision was excised down to layer of the fascia, which was nicked in the midline and extended laterally using the Bovie cautery. The rectus muscles were dissected off the rectus fascia both superiorly and inferiorly. The rectus bellies in the midline, and the peritoneum was entered under direct visualization. The peritoneal incision was extended superiorly and inferiorly. A bladder flap was created and the bladder blade was then placed. The uterus was scored in a curvilinear linear fashion, entered in the midline revealing 1+ meconium amniotic fluid. The 's head was delivered onto the surgical field, and the oropharynx and nasopharynx were bulb suctioned. The rest of the 's body was delivered, cord was doubly clamped and cut and the was handed to the waiting respiratory team. Cord blood was then obtained. The placenta was manually removed from the uterus, and the uterus removed from its normal anatomical position. After gentle uterine lavage, the incision was inspected and found to be without extensions. It was then closed in 2 layers using 0 Vicryl suture in a running interlocking fashion, the second layer imbricating the first. After good hemostasis was achieved, copious amounts or irrigation was performed, and the gutters were suctioned free of blood and blood clots. Tisseel sealant was sprayed across the uterine incision. The uterus was then returned to its normal anatomical position, and after excellent hemostasis assured, the peritoneum was re-approximated using 3-0 Vicryl suture in a running interlocking fashion, and then the rectus muscles were re-approximated using 3-0 Vicryl suture in a [id number] configuration. The fascia was then re-approximated using 0 Vicryl suture in running interlocking fashion. The subcutaneous layer was made hemostatic using Bovie cautery, the Tisseel sealant was sprayed across the fascial incision and the skin edges re- approximated using 4-0 Vicryl suture in a sub-cuticular fashion. Patient tolerated the procedure well was transported to recovery in stable condition.
[2017-11-10] MEDS ORDERED: LANSINOH TP PRN (22:33)
[2017-11-10] MEDS ORDERED: TYLENOL PO PRN (22:33)
[2017-11-10] MEDS ORDERED: MILK OF MAGNESIA PO PRN (22:33)
[2017-11-10] MEDS ORDERED: TUCKS PAD TP PRN (22:33)
[2017-11-10] MEDS ORDERED: SENOKOT PO PRN (22:33)
[2017-11-10] MEDS ORDERED: D5LR 1,000 ML IV SCH (23:00)
[2017-11-10] MEDS ORDERED: DILAUDID IM PRN (23:11)
[2017-11-10] MEDS: TORADOL IV PRN (23:20)
[2017-11-10] MEDS ORDERED: TYLENOL PR ONE (23:55)
[2017-11-11] MEDS: ANCEF/NS 1 GM/50 ML 1 GM/50 ML BAG IV SCH ×2 (05:32→12:31)
[2017-11-11] MEDS: TORADOL IV PRN (05:42)
[2017-11-11] MEDS: METHERGINE PO SCH ×3 (05:53→22:40)
[2017-11-11 10:57] LABS: Hematocrit 20.5 % (30.3-42.9); Hemoglobin 6.4 gm/dl (10.1-14.3)
[2017-11-11] MEDS: MOTRIN PO PRN (13:35)
[2017-11-11] MEDS: NORCO 5/325 PO PRN (13:35)
--- NOTE | 2017-11-11 14:25 | Progress Note ---
Assessment and Plan - Patient Problems (1) 41 weeks gestation of Onset Date: 11/09/17 Current Visit: Yes Status: Resolved (2) Status post Onset Date: 11/11/17 Current Visit: Yes Status: Resolved Plan to address problem: A: S/P C Section - POD #1 Doing well Asymptomatic anemia - stable P: Continue RPOC Repeat H/H in AM (3) Acute blood loss anemia Onset Date: 11/11/17 Current Visit: Yes Status: Resolved Subjective - Subjective Date of service: 11/11/17 Principal diagnosis: s/p C Section - POD #1 Interval history: Pt is feeling well without complaints. She is tolerating a reg diet without nausea or vomiting, ambulating and voiding without difficulty. Patient reports: appetite normal, voiding normally, pain well controlled, flatus , ambulating normally, no dizzy ambulation, no nauseated : doing well, bottle feeding Objective - Vital Signs Latest vital signs: Vital Signs Temp Pulse Resp BP BP Pulse Ox 11/11/17 13:35 20 11/11/17 05:42 18 11/11/17 04:00 98.7 F 69 18 101/77 11/11/17 01:10 100 F H 80 18 110/60 11/11/17 01:05 20 11/11/17 00:32 100.3 F H 11/11/17 00:30 128 H 15 115/73 99 11/11/17 00:25 117 H 18 113/74 99 11/11/17 00:20 123 H 20 107/72 100 11/11/17 00:15 121 H 20 113/78 99 11/11/17 00:10 119 H 19 116/71 99 11/11/17 00:05 129 H 21 110/60 99 11/11/17 00:00 136 H 20 105/57 99 11/10/17 23:55 125 H 19 105/57 100 11/10/17 23:50 131 H 21 103/64 99 11/10/17 23:45 142 H 21 107/63 98 11/10/17 23:40 135 H 18 115/87 97 11/10/17 23:35 140 H 19 106/66 97 11/10/17 23:32 100.6 F H 11/10/17 23:30 145 H 20 109/76 97 11/10/17 23:25 137 H 22 102/78 97 /05/18 23:20 164 H 11 L 125/79 97 /05/18 23:15 143 H 21 125/79 97 05/18 23:10 138 H 21 121/84 98 08/05/18 23:05 134 H 17 135/84 98 18 23:00 136 H 15 128/88 98 /05/18 22:55 127 H 21 124/81 98 05/18 22:50 118 H 19 131/87 98 05/18 22:45 126 H 17 122/92 98 05/18 22:40 118 H 18 135/91 97 05/18 22:35 98 05/18 22:32 99.6 F 11/10/17 21:24 111 H 98 11/10/18 21:19 111 H 97 11/10/18 21:14 112 H 97 /05/18 21:12 104 H 108/59 05/18 21:09 107 H 97 05/18 21:04 111 H 96 /05/18 20:59 102 H 97 05/18 20:54 103 H 96 /05/18 20:49 100 H 97 /05/18 20:44 101 H 98 05/18 20:43 80 84 11/10/17 20:39 107 H 96 05/18 20:34 101 H 98 05/18 20:29 101 H 97 /05/18 20:24 104 H 96 /05/18 20:20 99.5 F 103 H 18 112/68 11/10/18 20:19 105 H 97 0518 20:14 100 H 97 05/18 20:09 101 H 112/68 97 /05/18 20:08 98 H 120/67 05/18 20:05 96 H 115/70 05/18 20:04 98 H 98 05/18 20:03 104 H 124/76 05/18 20:01 109 H 118/74 0518 19:59 101 H 97 /05/18 19:47 104 H 98 /05/18 19:42 111 H 99 05/18 19:37 107 H 98 /0518 19:32 105 H 98 08/05/18 19:30 107 H 116/60 08/05/18 19:28 105 H 118/61 08/05/18 19:27 105 H 97 /05/18 19:25 110 H 118/65 08/05/18 19:23 106 H 111/65 08/05/18 19:22 102 H 98 /05/18 19:21 100 H 104/65 08/05/18 19:19 100 H 111/67 05/18 19:17 104 H 117/69 98 08/05/18 19:15 109 H 113/69 /05/18 19:13 103 H 105/68 05/18 19:12 99 H 96 /05/18 19:11 99 H 108/68 05/18 19:09 102 H 107/65 05/18 19:07 97 H 110/66 99 05/18 19:05 100 H 114/68 /05/18 19:03 96 H 112/63 05/18 19:02 100 H 99 05/18 19:01 111 H 111/59 05/18 18:59 100 H 110/57 08/05/18 18:57 96 H 105/57 99 08/05/18 18:55 107 H 112/57 08/05/18 18:53 97 H 109/58 08/05/18 18:52 96 H 111/55 98 /05/18 18:49 102 H 122/78 08/05/18 18:47 96 H 119/75 97 08/05/18 18:45 95 H 121/76 08/05/18 18:43 97 H 112/71 08/05/18 18:42 99 H 97 08/05/18 18:41 96 H 116/71 08/05/18 18:39 100 H 120/72 08/05/18 18:37 99 H 114/71 97 08/05/18 18:35 96 H 120/73 08/05/18 18:33 96 H 121/74 08/05/18 18:32 96 H 96 08/05/18 18:31 95 H 118/73 08/05/18 18:29 93 H 121/75 08/05/18 18:27 97 H 118/76 97 08/05/18 18:25 97 H 122/76 08/05/18 18:23 100 H 118/77 11/10/17 18:22 96 H 97 11/10/17 18:21 95 H 118/75 11/10/17 18:19 99 H 115/74 11/10/17 18:17 99 H 120/74 96 11/10/17 18:15 93 H 121/75 11/10/17 18:13 94 H 117/74 11/10/17 18:12 98 H 97 11/10/17 18:11 99 H 111/69 11/10/17 18:09 99 H 112/70 11/10/17 18:07 93 H 114/73 97 11/10/17 18:05 93 H 116/75 11/10/17 18:03 96 H 112/75 11/10/17 18:02 97 H 96 11/10/17 18:01 100 H 115/75 11/10/17 17:59 98 H 118/73 11/10/17 17:57 94 H 119/74 97 11/10/17 17:55 96 H 121/77 11/10/17 17:53 96 H 117/77 11/10/17 17:52 99 H 96 11/10/17 17:51 96 H 124/79 11/10/17 17:49 94 H 121/76 11/10/17 17:47 96 H 121/76 97 11/10/17 17:45 95 H 123/76 11/10/17 17:43 96 H 119/74 11/10/17 17:42 96 H 97 11/10/17 17:41 102 H 122/75 11/10/17 17:39 93 H 126/77 11/10/17 17:37 92 H 133/82 98 11/10/17 17:28 101 H 125/69 96 11/10/17 17:15 107 H 131/79 11/10/17 17:12 99 H 99 11/10/17 17:07 102 H 96 11/10/17 17:02 110 H 97 11/10/17 16:58 107 H 135/88 11/10/17 16:57 106 H 97 11/10/17 16:52 103 H 95 11/10/17 16:47 116 H 97 11/10/17 16:44 122 H 140/65 11/10/17 16:42 103 H 99 08/05/18 16:37 107 H 97 11/10/17 16:32 103 H 97 11/10/17 16:29 96 H 123/79 11/10/17 16:27 96 H 96 11/10/17 16:22 97 H 98 11/10/17 16:17 99 H 97 11/10/17 16:13 96 H 119/76 11/10/17 16:12 98 H 97 11/10/17 16:07 95 H 99 11/10/17 16:02 93 H 99 11/10/17 15:58 95 H 120/81 11/10/17 15:57 93 H 99 11/10/17 15:52 104 H 99 11/10/17 15:47 96 H 98 11/10/17 15:44 90 119/63 11/10/17 15:42 94 H 98 11/10/17 15:37 97 H 99 11/10/17 15:32 95 H 98 11/10/17 15:28 101 H 137/88 11/10/17 15:27 94 H 98 11/10/17 15:22 95 H 100 11/10/17 15:17 96 H 99 11/10/17 15:15 92 H 123/86 11/10/17 15:12 97 H 99 11/10/17 15:07 95 H 100 11/10/17 15:02 91 H 100 11/10/17 14:59 92 H 121/73 11/10/17 14:57 89 100 11/10/17 14:52 110 H 97 11/10/17 14:47 99 H 100 11/10/17 14:43 85 125/82 11/10/17 14:42 89 100 11/10/17 14:37 95 H 100 11/10/17 14:32 95 H 99 11/10/17 14:29 89 123/80 11/10/17 14:27 92 H 99 Intake and Output 11/10/17 11/11/17 11/11/17 22:59 06:59 14:59 Intake Total 2052.333 1150 660 Output Total 150 450 550 Balance 1903.333 700 110 Intake: IV 2052.333 1150 ANCEF/NS 1 GM/50 ML 1 gm 50 In 50 ml @ 100 mls/hr IV Q8H ISSA Rx#:[id number] Lactated Ringers 1,000 ml 1000 @ 125 mls/hr IV DIRECT ISSA Rx#:[id number] PITOCin/NS 30 UNIT/500ML 53.333 30 units In 500 ml @ 1 MILLIUNITS/MIN 1 mls/hr IV TITR ISSA Rx#:[id number] Oral 660 Output: Urine 150 450 550 Indwelling Catheter 300 400 Void 150 Other: Total, Intake Amount 660 Total, Output Amount 300 150 Estimated Blood Loss 800 - Exam Breasts: Present: deferred Cardiovascular: Present: Regular rate Lungs: Present: Clear to auscultation Abdomen: Present: normal appearance, soft Uterus: Present: normal, firm, fundal height below umbilicus Extremities: Present: normal Incision: Present: normal, dry, intact, dressed - Labs Labs: Abnormal lab results 11/11/17 Range/Units 10:27 Hgb 6.4 L D (10.1-14.3) gm/dl Hct 20.5 L D (30.3-42.9) % Laboratory Tests 11/08/17 11/08/17 11/08/17 18:25 18:25 18:25 WBC 10.2 RBC 4.24 Hgb 11.4 Hct 34.8 MCV 82 MCH 27 L MCHC 33 RDW 21.4 H Plt Count 278 Lymph % (Auto) 22.4 [place] % (Auto) 11.2 H Eos % (Auto) 0.3 Baso % (Auto) 0.6 Lymph # 2.3 [place] # 1.1 H Eos # 0.0 Baso # 0.1 Seg Neutrophils % 65.5 Seg Neutrophils # 6.7 RPR Hep Bs Antigen Non-reactive HIV 1&2 Antibody Rapid Non react HIV P24 Antigen Non react Rubella IgG Antibody Immune Blood Type Antibody Screen 11/08/17 11/08/17 11/11/17 18:25 18:43 10:27 WBC RBC Hgb 6.4 L D Hct 20.5 L D MCV MCH MCHC RDW Plt Count Lymph % (Auto) [place] % (Auto) Eos % (Auto) Baso % (Auto) Lymph # [place] # Eos # Baso # Seg Neutrophils % Seg Neutrophils # RPR Nonreactive Hep Bs Antigen HIV 1&2 Antibody Rapid HIV P24 Antigen Rubella IgG Antibody Blood Type O POSITIVE Antibody Screen Negative
[2017-11-11] MEDS: PERCOCET 5/325 PO PRN (18:51)
[2017-11-11] MEDS: MYLICON PO PRN (18:53)
[2017-11-11] MEDS ORDERED: M-M-R II VACCINE SUB-Q ONE (22:34)
[2017-11-12] MEDS: MOTRIN PO PRN ×2 (00:05→12:15)
[2017-11-12] MEDS: NORCO 5/325 PO PRN ×2 (00:05→12:15)
[2017-11-12] MEDS: METHERGINE PO SCH ×2 (05:35→13:49)
[2017-11-12] MEDS: PERCOCET 5/325 PO PRN ×2 (05:35→23:47)
[2017-11-12] MEDS ORDERED: BOOSTRIX IM ONE (06:00)
[2017-11-12 07:15] LABS: Hematocrit 19.1 % (30.3-42.9); Hemoglobin 5.9 gm/dl (10.1-14.3)
--- NOTE | 2017-11-12 08:38 | Progress Note ---
Assessment and Plan - Patient Problems (1) 41 weeks gestation of Onset Date: 11/09/17 Current Visit: Yes Status: Resolved (2) Status post Onset Date: 11/11/17 Current Visit: Yes Status: Resolved Plan to address problem: A: S/P C Section - POD #2 Doing well Asymptomatic anemia - stable P: Continue RPOC Anticipate discharge tomorrow. (3) Acute blood loss anemia Onset Date: 11/11/17 Current Visit: Yes Status: Resolved Subjective - Subjective Date of service: 11/12/17 Principal diagnosis: s/p C Section - POD #2 Interval history: Pt is feeling well without complaints. She is tolerating a reg diet without nausea or vomiting, ambulating and voiding without difficulty. She denies being SOB, dizzy or lightheaded. Patient reports: appetite normal, voiding normally, pain well controlled, flatus , ambulating normally, no dizzy ambulation, no nauseated [place]: doing well, bottle feeding Objective - Vital Signs Latest vital signs: Vital Signs Temp Pulse Resp BP Pulse Ox 11/12/17 01:05 98.3 F 88 20 128/80 11/11/17 21:05 98.2 F 94 H 20 108/70 11/11/17 18:51 20 11/11/17 15:29 98.0 F 117 H 18 112/69 99 11/11/17 13:35 20 Intake and Output 11/11/17 11/12/17 11/12/17 22:59 06:59 14:59 Intake Total 240 240 Output Total 300 Balance -60 240 Intake: Intake, Free Water 240 240 Output: Urine 300 Void 300 Other: Total, Output Amount 200 # Voids Void 1 - Exam Breasts: Present: deferred Cardiovascular: Present: Regular rate Lungs: Present: Clear to auscultation Abdomen: Present: normal appearance, soft Uterus: Present: normal, firm, fundal height below umbilicus Extremities: Present: normal Incision: Present: normal, dry, intact - Labs Labs: Abnormal lab results 11/11/17 11/12/17 Range/Units 10:27 06:15 Hgb 6.4 L D 5.9 L* (10.1-14.3) gm/dl Hct 20.5 L D 19.1 L* (30.3-42.9) %
[2017-11-12] MEDS ORDERED: INFED IM NR (09:00)
[2017-11-12] MEDS ORDERED: FERRLECIT 125 MG in NACL 0.9% 100 ML IV ONE (10:00)
[2017-11-12] MEDS: PRENATAL VITAMIN PO SCH (10:07)
[2017-11-12] MEDS: MYLICON PO PRN (10:07)
[2017-11-13] MEDS: METHERGINE PO SCH (06:42)
[2017-11-13] MEDS: PERCOCET 5/325 PO PRN (07:37)
--- NOTE | 2017-11-13 08:29 | Progress Note ---
Assessment and Plan - Patient Problems (1) 41 weeks gestation of Onset Date: 11/09/17 Current Visit: Yes Status: Resolved (2) Status post Onset Date: 11/11/17 Current Visit: Yes Status: Resolved Plan to address problem: A: S/P C Section - POD #3 Doing well Symptomatic anemia - stable P: Will give 1 unit of blood today (3) Acute blood loss anemia Onset Date: 11/11/17 Current Visit: Yes Status: Resolved Subjective - Subjective Date of service: 11/13/17 Principal diagnosis: s/p C Section - POD #3 Interval history: Pt is feeling well without complaints. She is tolerating a reg diet without nausea or vomiting, ambulating and voiding without difficulty. She denies being SOB, dizzy or lightheaded. Patient reports: appetite normal, voiding normally, pain well controlled, flatus , ambulating normally, no dizzy ambulation, no nauseated [place]: doing well, bottle feeding Objective - Vital Signs Latest vital signs: Vital Signs Temp Pulse Resp BP BP Pulse Ox 11/13/17 07:48 100.3 F H 118 H 18 115/74 98 11/13/17 00:00 98.7 F 77 18 114/72 11/12/17 08:48 98.5 F 94 H 18 106/78 Intake and Output 11/12/17 11/13/17 11/13/17 22:59 06:59 14:59 Intake Total 300 Balance 300 Intake: Intake, Free Water 300 - Exam Cardiovascular: Present: Regular rate Lungs: Present: Clear to auscultation Abdomen: Present: normal appearance, soft Uterus: Present: normal, firm, fundal height below umbilicus Extremities: Present: normal Incision: Present: normal, dry, intact
[2017-11-13] MEDS ORDERED: NACL 0.9% 250ML 500 ML ONE (09:16)
[2017-11-13] MEDS ORDERED: NACL 0.9% 500 ML 500 ML IV NR (09:30)
[2017-11-13] MEDS ORDERED: BENADRYL IV NR (09:30)
[2017-11-13] MEDS ORDERED: TYLENOL PO NR (09:30)
[2017-11-13] MEDS: FEOSOL PO SCH ×2 (11:28→11:30)
[2017-11-13] MEDS: PRENATAL VITAMIN PO SCH ×2 (11:28→11:30)
[2017-11-13 17:28] LABS: Hemoglobin 6.2 gm/dl (10.1-14.3)
[2017-11-13 17:36] LABS: Hematocrit 19.5 % (30.3-42.9)
[2017-11-13 17:37] VITALS: BP 117/77
--- NOTE | 2017-11-13 18:21 | Discharge Summary ---
Providers - Providers Date of Admission: 11/08/17 21:56 Date of discharge: 11/13/17 Attending physician: CADEN BUI Primary care physician: CADEN BUI Hospitalization Reason for admission: induction of labor, IUP at term Delivery: Procedure: section, primary low transverse Episiotomy: none Laceration: none Incision: normal, dry, intact Other procedures: none complications: transfusion Discharge diagnosis: other (S/P C Section) baby: male Hospital course: Pt is a 22yo BF EDC 10/31/17; EGA 41 / weeks who presented for induction of labor. She received cervidil followed by pitocin all day and still no significant cervical change and so was delivered by an uncomplicated C Section. By POD #3 she was tolerating a reg diet without nausea or vomiting, ambulating and voiding without difficulty, and even though she was asymptomatic her pulse was elevated and therefore transfused 1 unit of blood for anemia. Her H/H was stable at 6.2/19.5 She was therefore discharged to home on POD #3 in stable condition, and will follow up in the office in 1 week. Condition at discharge: Good Disposition: DC-01 TO HOME OR SELFCARE - Discharge Diagnoses (1) 41 weeks gestation of Status: Resolved (2) Status post Status: Resolved (3) Acute blood loss anemia Status: Resolved Plan - Discharge Medications Prescriptions: Ferrous Sulfate [Feosol 325 MG tab] 325 mg PO BID #60 tablet HYDROcodone/APAP 5-325 [[place] 5/325] 1 each PO Q6HR PRN #30 tablet PRN Reason: Pain Ibuprofen [Motrin] 800 mg PO Q8HR PRN #30 tablet PRN Reason: Moder Pain Unrelieved By [place] Vit Calc,Iron,Folic [ Vitamins] 1 each PO DAILY #30 tablet - Provider Discharge Summary Activity: routine, no sex for 6 weeks, no heavy lifting 4 weeks, no strenuous exercise Diet: routine Instructions: routine Additional instructions: [] Smoking cessation referral if applicable(refer to patient education folder for contact #) [] Refer to [facility] Booklet Call your doctor immediately for: * Fever > 100.5 * Heavy vaginal bleeding ( >1 pad per hour) * Severe persistent headache * Shortness of breath * Reddened, hot, painful area to leg or breast * Drainage or odor from incision. * Keep incision clean and dry at all times and follow doctor's instructions regarding bathing/showering - Follow up plan Follow up: CADEN BUI MD [Primary Care Provider] - 7 Days GAMALIEL WASHINGTON CNM [Advanced Practice Nurse] - 7 Days
== END 2017-11-13 19:30 | disposition home or self-care (01) | DRG 765 ==
LOC: TRG 12:46 → LD 21:56 → OB 11-11 01:30
PROVIDERS: ADMIT Obstetrics & Gynecology; ATTEND Obstetrics & Gynecology
PROC: 10D00Z1 Extraction of Products of Conception, Low, Open Approach (ICD-10-PCS; principal; 2017-11-10)
PROC: 30233N1 Transfusion of Nonautologous Red Blood Cells into Peripheral Vein, Percutaneous Approach (ICD-10-PCS; 2017-11-13)
DX: O99.02 Anemia complicating childbirth (principal); D62 Acute posthemorrhagic anemia; O99.824 Streptococcus B carrier state complicating childbirth; Z3A.41 41 weeks gestation of pregnancy; Z37.0 Single live birth; Z79.899 Other long term (current) drug therapy; O61.9 Failed induction of labor, unspecified; O33.9 Maternal care for disproportion, unspecified
CPT/HCPCS: 36415; 85014; 85018; 85025; 86592; 86706; 86762; 86850; 86900; 86901; 86920; 87806; 99211; C9250; G0463; J0290; J0595; J0690; J1200; J1750; J1885; J2210; J2590; J2765; J2916; J3010; J7050; J7120; J7121; P9016